=== PATIENT | female | born 1980 | race Caucasian/White ===

== ENCOUNTER → 2017-10-14 | Emergency (ER) | payer OTHER ==
[~2017-10-14] VITALS: Ht 172.7 cm; Wt 85.3 kg
[~2017-10-14] MED LIST: CLEOCIN HCL300 MG; MOTRIN PM CAPL1 EACH
== END | disposition home or self-care (01) ==
LOC: ER 22:46
DX: K05.10 Chronic gingivitis, plaque induced (principal)

== ENCOUNTER 2017-10-17 18:05 | Emergency (ER) | payer OTHER ==
[~2017-10-17] VITALS: Ht 172.7 cm; Wt 83.5 kg
[2017-10-17] MEDS ORDERED: MOTRIN PM CAPL1 EACH (18:54)
[2017-10-17] MEDS ORDERED: CLEOCIN HCL300 MG (18:54)
== END 2017-10-17 23:00 | disposition home or self-care (01) ==
LOC: ER 18:05
DX: B37.0 Candidal stomatitis (principal); R21 Rash and other nonspecific skin eruption

== ENCOUNTER 2018-06-30 09:12 | Emergency (ER) | payer OTHER ==
[~2018-06-30] VITALS: Ht 170.2 cm; Wt 88.0 kg
[2018-06-30] MEDS ORDERED: PROGESTERO50 MG/1 M1 (10:07)
[2018-06-30] MEDS ORDERED: PERMETHRIN60 GM TOP (11:13)
[2018-06-30] MEDS ORDERED: BETAMETHASONE D15 G3 TOP (11:13)
== END 2018-06-30 15:07 | disposition home or self-care (01) ==
LOC: ER 09:12
DX: L20.89 Other atopic dermatitis (principal); Z20.7 Contact with and (suspected) exposure to pediculosis, acariasis and other infestations